=== PATIENT | female | born 1970 | race Caucasian/White ===

== ENCOUNTER 2016-10-22 23:32 | Emergency (ER) | payer OTHER ==
[2016-10-22 23:33] VITALS: BP 143/69; PULSE 138; RESP 42; TEMP 98; O2SAT 98
[2016-10-22 23:40] VITALS: O2SAT 100; O2SAT 99
--- NOTE | 2016-10-22 23:55 | PD ---
HPI Chief Complaint: allergic reaction Time Seen by Provider: 23:53 Travel History International Travel<30 days: No Contact w/Intl Traveler<30days: No Traveled to known affect area: No History of Present Illness HPI 46-year-old female came to the emergency room with history of sudden onset shortness of breath and possible allergic reaction tonight. Her who was with her gave her patient's own EpiPen shot on the left thigh. After that she he brought her in himself. Patient was tachypneic and complaining off respiratory distress. Her oxygen saturation was 100% on room air. She did seem to be very anxious and breathing extremely fast. As per the they are visiting the area from [place] and are staying in a hotel. They ate dinner last night during which time the drank 4 or 5 beers and then went back to the hotel and drank some more. [place] she suddenly started experiencing this reaction. Patient is allergic to dill pickle. I asked her to try to slow her breathing down. No swelling of her tongue or lips. No rash or hives noticed. Patient denies doing any recreational drugs. [facility] Past Medical History Narrative Medical List of her past medical, surgical, social and family history was reviewed from the nursing note. Social History Tobacco Use: Yes Allergies-Medications (Allergen,Severity, Reaction): Uncoded Allergies: PICKLES (Allergy, Severe, 10/22/16) Comments List of her allergies reviewed from the nursing note. Reported Meds & Prescriptions Reported Meds & Active Scripts Active Benadryl Allergy (Diphenhydramine HCl) 25 Mg Cap 1 Tab PO Q6HR PRN Reported D 1000 (Cholecalciferol) 1,000 Unit Chew Lo Loestrin Fe 06/08 (Norethindrone-Ethinyl Estradiol-Fe) 1-10 Mg-Mcg Tab 1 Tab PO DAILY Effexor (Venlafaxine HCl) 75 Mg Tab 75 Mg PO DAILY Toprol XL (Metoprolol Succinate) 25 Mg Tab 25 Mg PO DAILY Metoprolol Tartrate 100 Mg Tab 100 Mg PO DAILY Cozaar (Losartan Potassium) 100 Mg Tab 100 Mg PO DAILY Narrative Medication List of her home medications reviewed from the nursing note. Review of Systems Except as stated in HPI: all other systems reviewed are Neg Physical Exam Narrative GENERAL: Awake, extremely anxious, distress, intoxication SKIN: Focused skin assessment warm/dry. HEAD: Atraumatic. Normocephalic. EYES: Pupils equal and round. No scleral icterus. No injection or drainage. ENT: No nasal bleeding or discharge. Mucous membranes pink and moist. NECK: Trachea midline. No JVD. CARDIOVASCULAR: Regular rate and rhythm. No murmur appreciated. RESPIRATORY: Tachypneic, using accessory muscles of respiration but mostly from the hyperventilation GASTROINTESTINAL: Abdomen soft, non-tender, nondistended. Hepatic and splenic margins not palpable. MUSCULOSKELETAL: No obvious deformities. No clubbing. No cyanosis. No edema. NEUROLOGICAL: Awake and alert. No obvious cranial nerve deficits. Motor grossly within normal limits. Normal speech. PSYCHIATRIC: Appropriate mood and affect; insight and judgment normal. Data Data Last Documented VS Vital Signs Date Time Temp Pulse Resp B/P Pulse Ox O2 Delivery O2 Flow Rate FiO2 10/23/16 01:15 83 16 114/63 97 10/22/16 23:40 21 10/22/16 23:33 98.0 Room Air MDM Medical Decision Making Medical Screen Exam Complete: Yes Emergency Medical Condition: Yes Medical Record Reviewed: Yes Differential Diagnosis Allergic reaction, panic attack Narrative Course 1:06 AM soon after patient's arrival patient was given 2 mg of IV Ativan and immediately she calmed down. Her heart rate started to come down as well. I went back and reassessed her 15 minutes ago and she seems extremely comfortable. She still little tachycardic which I think is a combination of her anxiety with EpiPen given and alcohol on board. And is comfortable taking her home. I'll discharge her at this point. They requested another prescription for EpiPen. 1:08 AM patient is on beta renny and anicteric did not order EpiPen as it interacts severely with it. Procedures EKG Prior to Arrival: No Diagnosis Primary Impression: Panic attack Additional Impression: possible allergic reaction Referrals: Primary Care Physician 2 days Additional Instructions: Please return to the ER if the condition worsens or any other new concerns. Otherwise follow-up with your primary care when you go back home. Med/Other Pt SpecificInfo: Prescription(s) given Scripts Diphenhydramine HCl (Benadryl Allergy)25 Mg Cap1 Tab PO Q6HR PRN (ALLERGIC REACTION) #20 Prov:Stacey Jacome MD 10/23/16 Disposition: 01 DISCHARGE HOME Condition: Stable Stacey Jacome MD October 22, 2016 23:55
[2016-10-23] MEDS ORDERED: COZA100T PO (00:26)
[2016-10-23] MEDS ORDERED: METO100T PO (00:26)
[2016-10-23] MEDS ORDERED: VENL75TA PO (00:26)
[2016-10-23] MEDS ORDERED: LO LTAB PO (00:26)
[2016-10-23] MEDS ORDERED: D 10CHW (00:26)
[2016-10-23] MEDS ORDERED: TOPR25TA PO (00:26)
[2016-10-23] MEDS ORDERED: BENA25CA4 PO (01:09)
[2016-10-23 01:15] VITALS: BP 114/63
== END 2016-10-23 01:20 | disposition home or self-care (01) ==
LOC: NEPE 23:32
DX: F41.0 Panic disorder [episodic paroxysmal anxiety] (principal); Z72.0 Tobacco use
CPT/HCPCS: 99283